=== PATIENT | female | born 1960 | race Asian ===

== ENCOUNTER → 2020-08-09 09:31 | Outpatient (CLI) | payer OTHER, SELFPAY ==
--- NOTE | 2020-08-09 09:38 | DI.US.S_ITS ---
PROCEDURE: US ABDOMEN LIMITED INDICATIONS: ABNORMAL LFTS TECHNIQUE: Real-time focused scanning was performed of the abdomen, with image documentation. COMPARISON: None. FINDINGS: Diffuse moderately increased hepatic parenchymal echogenicity. No focal hepatic mass. No coarsening of the hepatic echotexture or nodularity of the liver contour. Normal size of the liver. Normal appearance of the gallbladder without wall thickening, sludge, stone, or pericholecystic fluid. Normal caliber intrahepatic and extrahepatic biliary ducts. IMPRESSION: Moderate to severe hepatic steatosis. Steatohepatitis will need clinical exclusion. Dictated by: Neftali Bonilla M.D. on 08/09/2020 at 12:03 Approved by: Neftali Bonilla M.D. on 08/09/2020 at 12:04
--- NOTE | 2020-08-09 09:38 | DI.RAD.S_ITS ---
PROCEDURE: XR DEXA AXIAL SKELETON INDICATIONS: Abnormal results of liver function COMPARISON: None. FINDINGS: This blank DEXA report has been sent in error by the PACS system. The correct and complete report will be forthcoming in 1-2 days. Thank you for your patience and understanding. Dictated by: Paty Tavarez MD, PhD on 08/09/2020 at 17:50 Approved by: Paty Tavarez MD, PhD on 08/09/2020 at 17:50
== END ==
PROVIDERS: PCP Physician Assistant; Referring Provider Physician Assistant; Visit Provider Physician Assistant
DX: Z13.820 Encounter for screening for osteoporosis (principal); M81.0 Age-related osteoporosis without current pathological fracture; Z78.0 Asymptomatic menopausal state; R94.5 Abnormal results of liver function studies; K76.0 Fatty (change of) liver, not elsewhere classified
CPT/HCPCS: 76705; 77080

== ENCOUNTER → 2020-09-16 13:55 | Outpatient (CLI) | payer OTHER, SELFPAY ==
--- NOTE | 2020-09-16 13:56 | DI.MG.S_ITS ---
BILATERAL DIGITAL SCREENING MAMMOGRAM 3D/2D WITH CAD: 09/16/2020 CLINICAL: Routine screening. Comparison is made to exams dated: 02/23/2017 mammogram, 03/30/2018 mammogram, and 05/06/2019 mammogram - outside location. The tissue of both breasts is heterogeneously dense. This may lower the sensitivity of mammography. Current study was also evaluated with a Computer Aided Detection (CAD) system. No significant masses, calcifications, or other findings are seen in either breast. There has been no significant interval change. IMPRESSION: NEGATIVE There is no mammographic evidence of malignancy. A 1 year screening mammogram is recommended. This exam was interpreted at Station ID: [id number]. NOTE: For mammograms, a report in lay terms will be sent to the patient. Approximately 15% of breast malignancies will not be visualized mammographically. In the management of a palpable breast mass, a negative mammogram must not discourage biopsy of a clinically suspicious lesion. Electronically Signed By: Prieto reyes/queta:09/18/2020 08:09:10 letter sent: Normal Exam ACR BI-RADS Category 1: Negative [id number]
== END ==
PROVIDERS: PCP Physician Assistant; Referring Provider Physician Assistant; Visit Provider Physician Assistant
DX: Z12.31 Encounter for screening mammogram for malignant neoplasm of breast (principal)
CPT/HCPCS: 77063; 77067

== ENCOUNTER → 2021-08-24 11:44 | Outpatient (CLI) | payer OTHER, SELFPAY ==
--- NOTE | 2021-08-24 11:45 | DI.RAD.S_ITS ---
PROCEDURE: XR DEXA AXIAL SKELETON INDICATIONS: Age-related osteoporosis COMPARISON: None. FINDINGS: This blank DEXA report has been sent in error by the PACS system. The correct and complete report will be forthcoming in 1-2 days. Thank you for your patience and understanding. Dictated by: Paty Tavarez MD, PhD on 08/25/2021 at 7:42 Approved by: Paty Tavarez MD, PhD on 08/25/2021 at 7:42
== END ==
PROVIDERS: PCP Physician Assistant; Referring Provider Physician Assistant; Visit Provider Physician Assistant
DX: M81.0 Age-related osteoporosis without current pathological fracture (principal); Z78.0 Asymptomatic menopausal state; Z82.62 Family history of osteoporosis
CPT/HCPCS: 77080

== ENCOUNTER → 2022-06-05 10:36 | Outpatient (CLI) | payer OTHER, SELFPAY ==
[2022-06-05 11:32] LABS: Influenza A - CEPHEID Flu A NEGATIVE (NEGATIVE); Influenza B - CEPHEID Flu B NEGATIVE (NEGATIVE); Respiratory Syncytial Virus Negative (Negative)
[2022-06-05 11:54] LABS: COVID-19 CEPHEID 4-PLEX PCR Negative (Negative)
== END ==
PROVIDERS: PCP Physician Assistant; Referring Provider Nurse Practitioner Family; Visit Provider Nurse Practitioner Family
DX: R05.1 Acute cough (principal); Z20.822 Contact with and (suspected) exposure to COVID-19
CPT/HCPCS: 0241U

== ENCOUNTER 2023-09-17 12:00 | Day surgery (SDC) | payer OTHER, SELFPAY ==
[2023-09-17] VITALS (7 sets, daily range): BP systolic 107–147; BP diastolic 62–89; PULSE 75–98; RESP 10–18; TEMP 36.3–36.8; O2SAT 94–98
--- NOTE | 2023-09-17 | PATH_ITS ---
[facility] Accession Number: [id number] No. of containers..04 Tissue . 01 Material submitted: . PART A: gastrointestinal site - GASTRITIS PART B: colon - ASCENDING POLYP PART C: colon - COLON POLYP @ 55 CM PART D: colon - COLON POLYP @ 40 CM . 01 Clinical history: . A: RULE OUT AUTOIMMUNE . 01 Diagnosis: A. Stomach, gastritis, biopsy: Antral gastric mucosa with mild reactive gastropathy, and focal intestinal metaplasia (by morphology), cannot rule out autoimmune process in antral biopsy alone (see comment). No H. Pylori like organisms identified (by the H/E and immunohistochemical stained slide sections). No dysplasia, G cells hyperplasia, endocrine hyperplasia or malignancy identified. -- B. Colon, ascending, polyp biopsy: Tubular adenoma. -- C. Colon, polyp at 55 cm, biopsy: Tubular adenoma. -- D. Colon, polyp at 40 cm, biopsy: Tubular adenoma. -- Comment for part A: Antral gastric mucosa confirmed by gastrin immune stain, negative for endocrine hyperplasia by synaptophysin immune stain. We can not rule out autoimmune gastritis in antral gastric mucosa biopsy alone, therefore if clinical suspicion is high for autoimmune process, we recommend submitting a separate stomach (gastric body) and (antral gastric) mucosa biopsies for histologic evaluation. H. Pylori immunohistochemical stain was performed and is negative. Iron special stain is negative. PAS special stain was performed; however, goblet cells disappear in deeper level and is negative. TECHNICAL NOTE: THE IMMUNOHISTOCHEMICAL AND SPECIAL STAINS REPORTED WERE PERFORMED AT [facility] [place] ([address], [facility] [address]). THEY WERE DEVELOPED AND THEIR PERFORMANCE CHARACTERISTICS DETERMINED BY [employer] THEY HAVE NOT BEEN CLEARED OR APPROVED BY THE [place] [employer], ALTHOUGH SUCH APPROVAL IS NOT REQUIRED FOR ANALYTE-SPECIFIC REAGENTS OF THIS TYPE. TXN 09/25/2023 1223 Local . 01 Electronically signed: . Tawfeq MD Ольга, Pathologist NPI- [id number] . 01 Gross description: . Part A: GASTRITIS: Received in formalin are 2 fragment(s) of bess, soft tissue measuring 0.1 x 0.1 x 0.1 cm to 0.2 x 0.2 x 0.2 cm submitted entirely in 1 cassette(s) Part B: ASCENDING POLYP: Received in formalin are 2 fragment(s) of bess, soft tissue measuring 0.2 x 0.2 x 0.2 cm to 0.3 x 0.2 x 0.2 cm submitted entirely in 1 cassette(s) Part C: COLON POLYP @ 55 CM: Received in formalin are 2 fragment(s) of bess, soft tissue measuring 0.2 x 0.2 x 0.2 cm to 0.3 x 0.2 x 0.2 cm submitted entirely in 1 cassette(s) Part D: COLON POLYP @ 40 CM: Received in formalin is 1 fragment(s) of bess, soft tissue measuring 0.3 x 0.3 x 0.3 cm submitted entirely in 1 cassette(s) /RYAN 09/18/2023 2001 Local . 01 Pathologist provided ICD-10: R11.0, R13.14, Z12.11 . 01 CPT . 929020, 699608, 335981, 618560, [id number], [id number], [id number], [id number] Specimen Comment: A courtesy copy of this report has been sent to [phone] Performed at: 01 [facility] [address] [place] [address], [place], [place] [id number] MD Marvin Merida MD Phone: [phone]
--- NOTE | 2023-09-17 12:12 | P.HP_ITS ---
History of Present Illness History of Present Illness Date Patient Seen: 09/17/23 Chief complaint: EGD & Colonoscopy Narrative: Previous EGD showing a possible hyperplastic polyp at the GE junction need to follow up, take more biopsies in removed if possible. In addition, due for colon cancer screening. Last colonoscopy 10 years ago [facility] Medical History (Updated 09/17/23 @ 12:36 by Deena Bautista RN) Hx of osteoporosis Hx of hyperlipidemia Social History Smoking Status: Never smoker Meds Home Medications and Allergies Home Medications Medication Instructions Recorded Confirmed Type atorvastatin 20 mg tablet (Lipitor) 20 mg PO DAILY 06/05/22 09/17/23 History cholecalciferol (vitamin D3) 1,000 units PO 06/05/22 06/05/22 History hydroxychloroquine 200 mg tablet 200 mg PO DAILY 06/05/22 09/17/23 History ibandronate 150 mg tablet 150 mg PO QMONTH 06/05/22 09/17/23 History vitamin E acetate PO 06/05/22 06/05/22 History Allergies Allergy/AdvReac Type Severity Reaction Status Date / Time No Known Drug Allergies Allergy Unverified 06/05/22 10:38 Exam Narrative Exam Narrative: Oropharynx free of lesions Chest clear to auscultation percussion Cardiac exam reveals no S3 or murmur Assessment & Plan Assessment & Plan narrative: History of GE junction hyperplastic nodule need for re-evaluation and removal of possible Need for colorectal cancer screening at a 10 year interval Patient will have EGD and colonoscopy performed. Risks, benefits, alternatives have been explained.
--- NOTE | 2023-09-17 12:13 | PM.OP.EC ---
Operative Date/Time/Diagnoses Date of procedure: 09/17/23 Pre-op diagnosis: See indication and findings Procedure & Clinicians Study performed: EGD and colonoscopy Indications: Hyperplastic esophageal GE junction polyp need for evaluation and possible removal. Ten year screening colonoscopy Surgeon: Yareli Lizarraga Procedure Notes Procedure in detail: After informed consent was obtained the patient was placed in left lateral decubitus position. Video upper scope was placed into the oropharynx and with the patient's help swallowed into the esophagus. The esophagus stomach and duodenum were carefully examined. On withdrawal, retroflexed view the GE junction was performed. The scope was removed. The patient tolerated procedure well. Patient was then turned in the colonoscope substituted. The scope was introduced the rectum slowly advanced to the cecum. Preparation was good. On slow withdrawal mucosa was carefully examined. The scope was removed. The patient tolerated procedure well. Blood loss none Complications none Sedation mac Findings EGD 1. Normal upper esophageal sphincter and most of the esophagus. 2. Mild wide open Schatzki's ring but no evidence for any nodularity both on straight view and retroflexion. Multiple photographs taken. 3. Severe antral gastritis with linear hematin flecks on the background of intense erythema. Biopsies taken 4. Normal duodenal bulb and sweep Colonoscopy 1. 5 mm polyp at 40 cm Jumbo biopsy removed completely 2. 4 mm polyp at 55 cm Jumbo biopsy to removed completely 3. 12 mm polyp at the proximal ascending colon cold snared x2 and removed completely and retrieved 4. Otherwise negative colonoscopy to cecum We will be in touch regarding biopsies. No follow-up is necessary for the perceived lesion at the GE junction. Pathology on the polyp will be discussed. Most likely will need follow-up in 3 years. Nausea may be part and parcel of the rather severe gastritis. I biopsied this again. I asked that she follow up with Dr. Yamilet blandon doctors loss per virtually of possible or myself if available. She should stay on her current medications.
[2023-09-17] MEDS: LACTATED RINGERS 1,000 ML 100 ML IV (12:48)
== END 2023-09-17 14:26 | disposition home or self-care (01) ==
PROVIDERS: PCP Physician Assistant; Referring Provider Internal Medicine Gastroenterology; Visit Provider Internal Medicine Gastroenterology
PROC: 0DJ08ZZ Inspection of Upper Intestinal Tract, Via Natural or Artificial Opening Endoscopic (ICD-10-PCS; CPT 43235; principal; 2023-09-17 13:00)
PROC: 0DJD8ZZ Inspection of Lower Intestinal Tract, Via Natural or Artificial Opening Endoscopic (ICD-10-PCS; CPT 45378; 2023-09-17 13:00)
DX: Z12.11 Encounter for screening for malignant neoplasm of colon (principal); K22.82 Esophagogastric junction polyp; K22.2 Esophageal obstruction; K29.70 Gastritis, unspecified, without bleeding; K31.89 Other diseases of stomach and duodenum; D12.2 Benign neoplasm of ascending colon; D12.6 Benign neoplasm of colon, unspecified
CPT/HCPCS: 45385; 45380; 43239; J2704